=== PATIENT | male | born 1950 | race Asian ===

== ENCOUNTER 2023-11-13 18:54 | Emergency (ER) | payer OTHER, SELFPAY ==
[2023-11-13] VITALS (25 sets, daily range): BP systolic 125–226; BP diastolic 88–159
[2023-11-13 19:05] LABS: Glucose - Point of Care 193 mg/dl (70-99)
[2023-11-13] MEDS: AMIDATE 20 MG IV (19:16)
[2023-11-13 19:17] LABS: % Basophils 0.6 % (0-2); % Eosinophils 1.5 % (0-6); % Lymphocytes 27.5 % (20.5-51.1); % Neutrophils 61.4 % (42.2-75.2); Absolute Eosinophils 0.1 10^3/uL (0-0.7); Absolute Lymphocytes 1.3 10^3/uL (1.2-3.4); Absolute Monocytes 0.4 10^3/uL (0.1-0.6); Absolute Neutrophils 2.9 10^3/uL (1.4-6.5); Hematocrit 37.8 % (39.0-52.0); Hemoglobin 13.2 g/dL (13.0-18.0); Mean Corp Hgb Conc. 34.9 g/dL (33.0-37.0); Mean Corpuscular Hgb 29.2 pg (27.0-31.0); Mean Corpuscular Volume 83.6 fL (80.0-94.0); Mean Platelet Volume 8.8 fL (7.4-10.4); Nucleated Red Blood Cells % 0 % (-); Platelet Count 254 10^3/uL (130-400); Red Blood Cell Count 4.52 10^6/uL (4.70-6.10); Red Cell Dist. Width 13.2 % (11.5-14.5); White Blood Cell Count 4.7 10^3/uL (4.8-10.8)
--- NOTE | 2023-11-13 19:23 | EDRN ---
Patient does not speak Greenlandic.
1906 Rapid sequence intubation initiated by MD Franklin for airway protection. patient on arrival not responsive to painful stimuli and not protecting airway. For intubation given 20mg etomidate and 70 mg Rocuronium. One successful attempt made.
ETT tube size 7.5 and secured 22@teeth. secured on the right side by respiratory. Propofol started at 1911 infusing at 20mcg/kg/min. Patient to CT scan at 1917. Patient arrived back to room at 1925.
[2023-11-13 19:29] LABS: INR 1.01; PT 13.1 Sec (11.4-14.6)
[2023-11-13 19:30] LABS: ALT (SGPT) 35 U/L (0-50); APTT 27.5 Sec (23.4-35.0); AST (SGOT) 27 U/L (17-59); Albumin 4.5 g/dl (3.5-5.0); Alkaline Phosphatase 59 U/L (38-126); Blood Urea Nitrogen 17 mg/dl (9-20); Calcium 9.5 mg/dl (8.4-10.2); Carbon Dioxide 24 mmol/L (22-30); Chloride 107 mmol/L (98-107); Glucose 177 mg/dl (70-99); Potassium 3.8 mmol/L (3.5-5.1); Sodium 138 mmol/L (135-145); Total Bilirubin 0.5 mg/dl (0.2-1.3); Total Protein 6.6 g/dl (6.3-8.2); eGFR > 60.00
[2023-11-13] MEDS: NSS 1000 IV (19:35)
[2023-11-13 19:41] LABS: Troponin I < 0.012 ng/ml
--- NOTE | 2023-11-13 19:54 | EDRN ---
193 16 F Orogastric tube inserted. confirmed with xray
--- NOTE | 2023-11-13 19:57 | ED.GENMED ---
History of Present Illness
General
Chief Complaint: Change Level of Consciousness
Time Seen by Provider: 11/13/23 19:12
History of Present Illness
History of Present Illness:
84-year-old male with prior history of brain tumor (10 years ago, unclear hx) presenting to the emergency department with unresponsiveness and seizure. Patient arrives by medics. Reportedly had a seizure at home, tonic-clonic. No reported history
of seizures. Patient was administered 5 mg of Versed by medics. On arrival to the hospital, patient unresponsive. History given by perfecto at bedside. Notes that only medication that he is on is fish oil. No additional history obtained at this
time by patient.
Phy Exam
Physical Exam
Physical Exam:
General: Unresponsive
HEENT: Pupils are equal, reactive
Neck: appears supple
CV: Normal heart rate, regular rhythm
Resp: Agonal respirations, not currently protecting airway
Abd: Soft and non-distended
Extremities: No deformities, no swelling, no erythema
Neuro: No verbal or motor response
: deferred
Rectal: deferred
Psych: Normal affect
Skin: Intact
Course
Orders/Labs/Results
Orders:
Orders
11/13/23 19:06
Propofol 1,000,000 Mcg/100 ml [Diprivan] 1,000,000 mcg in 100 ml .ROUTE .STK-MED
11/13/23 19:07
Electrocardiogram (*1) Urgent
Reason for Study: Other
Other Reason for Exam: Possible Stroke
Bedside Glucose- Treatment ONCE
Cardiac Monitoring- Treatment ONCE
EKG- Treatment ONCE
IV Insert/Care/Rem.- Treatment PRN
Etomidate [Amidate] 20 mg IV NOW STA
Vital Signs As Directed
Frequency: Other
Weight As Directed
Frequency: Once
Comment: ZERO STRETCHER SCALE FOR ACCURATE WEIGHT
O2 Therapy [RESP] Urgent
Titrate/Wean O2 to maintain O2 sat greater than (%): 93
Special Instructions: MAINTAIN CONTINUOUS O2 SATS > OR = 93%
11/13/23 19:10
Complete Blood Count/With Diff Urgent
Comprehensive Metabolic Panel Urgent
PTT Urgent
Prothrombin Time Urgent
Troponin I Urgent
Urinalysis Reflex To Culture Urgent
Date Specimen was Collected: 11/13/23
Time Specimen was Collected: 19:07
11/13/23 19:12
CT Head W/o Iv Contrast Stat
Comment:
Reason For Exam: intubation ams
Portable Chest Xray [CR Chest Portable - 1 View] Stat
Comment:
Reason For Exam: intubation
Reason Study Needs to be Portable: Unable to Transport
11/13/23 19:35
0.9% Sodium Chloride 1000 ml [Nss] 1,000 ml IV BOLUS
11/13/23 19:45
Restraints - Non Violent As Directed
Justification-Patient:: 2-Protective Intervention
Restraint Type-: Soft Limb-L&R Wrist/4rail
Apply From (date): 11/13/23
Apply from (time): 19:45
Remove (date): 11/14/23
Remove (time): 23:59
11/13/23 19:58
Etomidate [Amidate 20 mg] 20 mg IV NOW STA
11/13/23 19:59
Propofol 1,000,000 Mcg/100 ml [Diprivan] 1,000,000 mcg in 100 ml IV NOW
Indication:: Light Sedation
Begin Infusion:: Now
Goal:: RASS 0 to -2
Maximum dose in mcg/kg/min:: 50
Initial dose based on RASS:: Yes
If RASS is:: +1 or pt hemodynamically unstable (SBP < 90mmHg), initiate at 10 mcg/kg/min
If RASS is:: +2, initiate at 20 mcg/kg/min
If RASS is:: greater than or equal to +3, initiate at 30 mcg/kg/min
Titration Instructions:: Titrate by 5-10 mcg/kg/min every 5 minutes until RASS 0 to -2 achieved.
Taper Instructions:: If RASS is at or below goal for 4 consecutive hours decrease infusion by
Taper Instructions:: 5-10 mcg/kg/min every 2 hours to off.
Over-sedation Instructions:: If CPOT 0-2 (at goal) AND RASS -3 to -5 (below goal) decrease sedative by
Over-sedation Instructions:: 50% first. If pain score remains at goal and RASS remains below goal in
Over-sedation Instructions:: 1 hour, decrease opioid infusion by 50%.
Notify provider:: immediately if patient exhibits signs/symptoms of propofol-related
Notify provider:: infusion syndrome.
Additional Instructions:: Patient MUST be mechanically ventilated and MUST receive analgesia.
11/13/23 20:00
Nicardipine 40 mg/200 ml [Cardene] 40 mg in 200 ml IV PER PROTOCOL
Currently infusing. Continue current dose and titrate:: Yes
Titrate to keep:: SBP 120 - 140 mmHg
Titrate by mg/hr:: 2.5 mg/hr
Frequency of titrations (minutes):: 5-15 minutes
Maximum dose in mg/hr:: 15
Begin to taper infusion when:: Remained at goal for 2hrs
Taper by mg/hr:: 2.5 mg/hr
Frequency of taper (minutes) if patient maintains goal:: every 15-30 minutes
Taper to off?: Yes
If infusion off & no longer maintaining goal:: Contact Provider
11/13/23 20:09
ASA Classification Routine
Levetiracetam Injectable [Keppra] 1,500 mg IV NOW STA
Propofol [Diprivan] 50 mg IV NOW STA
11/13/23 20:10
Propofol [Diprivan] 20 ml .ROUTE .STK-MED
11/13/23 20:16
Triglycerides Routine
Comment: baseline levels with propofol infusion
11/13/23 20:56
ABG [Arterial Blood Gas] Urgent
%Oxygen/Room Air: 96
Abnormal Lab Results
11/13/23 11/13/23 11/13/23
18:59 19:10 20:16
WBC 4.7 L 10^3/uL
(4.8-10.8)
RBC 4.52 L 10^6/uL
(4.70-6.10)
Hct 37.8 L %
(39.0-52.0)
ABG O2 Sat (Measured)
Glucose 177 H mg/dl
(70-99)
Triglycerides 150 H mg/dl
(10-149)
POC Glucose 193 H mg/dl
(70-99)
11/13/23
20:56
WBC
RBC
Hct
ABG O2 Sat (Measured) 98.9 H %
(94-98)
Glucose
Triglycerides
POC Glucose
11/13/23 19:10
11/13/23 19:10
Vital Signs
Initial and Last Documented VS:
Initial Vital Signs
Pulse Resp BP Pulse Ox
102 16 127/92 100
11/13/23 19:01 11/13/23 19:01 11/13/23 19:01 11/13/23 19:01
Last Documented Vital Signs
Temp Pulse Resp BP Pulse Ox
97.5 F 97 15 134/88 99
11/13/23 19:33 11/13/23 21:00 11/13/23 21:00 11/13/23 21:00 11/13/23 21:00
Procedures
Intubations
Method of Intubation: glidescope
Tube size (cm): 7.5 (22 at teeth)
Placement confirmed by: CXR and direct visualization
Breath sounds after intubation: equal
Intubation complications: no complications
MDM/Problems Addressed
MDM/Problems Addressed:
84-year-old male with prior history of intracranial tumor presenting after a seizure and unresponsive state. Vital signs initially within normal limits.
On exam, patient unresponsive, no verbal or motor response, agonal respirations. For this, plans need for intubation for airway protection. Unclear patient postictal versus intracranial process such as stroke. Intubation was performed without
incident. Please see procedure note. After intubation, patient was immediately sent to CT scan
19:30 - Alerted by radiology for intracranial hemorrhage with intraventricular extension.
19:35 -Case discussed with Dr. Yeung and CT images sent
19:40 -in discussion with neurosurgery, recommending transfer to [facility] under ICU service. Discussed with family, updated. Patient hypertensive, started on nicardipine drip.
20:45 -blood pressure is improved. Patient also administered Keppra. Excepting doc is Dr. Du. Helicopter is en route.
21:30 - Transport team has departed
*Critical Care Note
Total Time (30-74mins, 75-104mins- exclusive of procedures): 90
comment:
The high probability of a clinically significant, sudden or life threatening deterioration of the neurologic system(s) required my full and direct attention, intervention and personal management. The aggregate critical care time was 90 minutes. This
time is in addition to time spent performing reported procedures but includes the following:
[x] Data Review and interpretation
[x] Patient assessment and monitoring of vital signs
[x] Documentation
[x] Medication orders and management
ED Attending Note
-
Portions of this chart may have been created with voice recognition software.� Occasional wrong word or��sound alike� substitutions may have occurred due to the inherent limitations of voice recognition software.
Discharge Plan
Departure
Patient Disposition: [facility]
Date of Disposition: 11/13/23
Time of Disposition: 20:14
Admit to doctor: Dr. Du
Patient with high blood pressure during this ER visit?: No
Condition: Critical
Discharge Problem:
Intracranial bleeding, Seizure, Episode of unresponsiveness
Prescriptions:
No Action
donepezil 10 mg tablet
10 mg PO BID
Theragen Tablet
1 tab PO DAILY
tamsulosin 0.4 mg capsule
0.4 mg PO DAILY
diazepam 2 mg tablet
1 mg PO HS
Patient Comments:
11/13/2023: last filled 10/03/23, 30 tabs for 60 days from [facility]
mirtazapine 30 mg tablet
30 mg PO HS
docusate sodium 100 mg capsule
100 mg PO BID
pravastatin 20 mg tablet
20 mg PO HS
dutasteride 0.5 mg capsule
0.5 mg PO HS
omega 5-qth-yix-fish oil [Fish Oil] 1,000 mg (120 mg-180 mg) Capsule
1 cap PO HS
mirabegron [Myrbetriq] 25 mg tablet extended release 24 hr
25 mg PO HS
Referrals:
Helene Moreno MD [Family Provider] -
Hospital Transfer
Other hospital: [facility]
I certify that the patient requires transfer: Yes
Discussed case with accepting physician: Dr. Du
Reason for transfer: higher level of care and availability of service
Interventions
Interventions:
*Risk Screen - Suicide Last Done: 11/13/23 19:01
*General Assessment Last Done: 11/13/23 19:01
*Neglect/Abuse Screening Last Done: 11/13/23 19:01
ED- Fall Risk Assessment Last Done: 11/13/23 21:39
*ED COVID-19 Vaccine History Last Done: 11/13/23 19:01
*Nursing Disposition Last Done: 11/13/23 21:39
ED- Cardiac Assessment Last Done: 11/13/23 19:38
ED- Neurological Assessment Last Done: 11/13/23 19:38
ED-Psychological Assessment Last Done: 11/13/23 19:38
ED- Pulmonary Assessment Last Done: 11/13/23 19:38
Discharge Date and Time
Discharge Date/Time: 11/13/23 21:41
Print Language: ESTONIAN
--- NOTE | 2023-11-13 19:59 | EDRN ---
1957
Indwelling urinary catheter placed. Temp cespedes size 16 F, clear yellow urine return
[2023-11-13 20:05] LABS: Urine Albumin Trace (Neg - Trace); Urine Bilirubin Negative (Negative); Urine Character Clear (Clear); Urine Color Yellow; Urine Glucose Negative (Negative); Urine Ketone Negative (Negative); Urine Leukocyte Negative (Negative); Urine Nitrite Negative (Negative); Urine Occult Blood Negative (Negative); Urine Urobilinogen Negative (Neg - 1+)
[2023-11-13] MEDS: DIPRIVAN 100 IV (20:11)
[2023-11-13] MEDS: DIPRIVAN 50 MG IV (20:12)
[2023-11-13] MEDS: CARDENE 200 IV (20:12)
[2023-11-13] MEDS: KEPPRA 1500 MG IV (20:16)
--- NOTE | 2023-11-13 20:24 | RESPNOTE ---
Pt intubated for airway protection with 7.5 ETT. 22@ lip. Placed on mechanical ventilation 14/450/+5/50%. Pt stable and tolerating vent well
[2023-11-13 21:08] LABS: B.E. -2.2 mmol/L; HCO3 23.2 mmol/L (21-28); O2 Saturation % 98.9 % (94-98); PCO2 41 mmHg (35-48); PO2 95 mmHg (83-108); pH 7.36 (7.35-7.45)
[2023-11-13 21:18] LABS: Triglycerides 150 mg/dl (10-149)
== END 2023-11-13 21:41 | disposition short-term general hospital (02) ==
LOC: EMR 18:54
PROVIDERS: EMERGENCY PHYSICIAN Student in an Organized Health Care Education/Training Program; FAMILY PHYSICIAN Obstetrics & Gynecology Gynecology
DX: I62.9 Nontraumatic intracranial hemorrhage, unspecified (principal); R56.9 Unspecified convulsions; I10 Essential (primary) hypertension; Z46.82 Encounter for fitting and adjustment of non-vascular catheter
CPT/HCPCS: 99291; 96374; 96375; 96376; 31500; 70450; 71045; 80053; 81003; 82805; 82962; 84478; 84484; 85025; 85610; 85730; 93005